=== PATIENT | female | born 1980 | race Two or more races ===

== ENCOUNTER 2018-12-20 13:11 | Emergency (ER) | payer OTHER ==
[~2018-12-20] VITALS: Ht 160 cm; Wt 60.0 kg
[2018-12-20] MEDS ORDERED: ONDANSETRON 4MG ODT PO STA (14:11)
[2018-12-20 14:49] LABS: CHLORIDE 104 mEq/L (98-107)
[2018-12-20 14:53] LABS: BASOPHILS % 0.7 % (0.0-2.0); ETHANOL BLOOD < 10 mg/dL; HEMATOCRIT. 34.6 % (36.0-48.0); LYMPHOCYTES % 13.4 % (20.0-50.0); MEAN CORPUSCULAR HEMOGLOBIN 29.8 pg (28.0-32.0); MEAN PLATELET VOLUME 7.9 fl (7.4-10.4); MONOCYTES % 9.5 % (2.0-8.0); NEUTROPHILS % 75.4 % (40.0-76.0); PLATELET 205 x1000/uL (130-400); RED BLOOD CELL COUNT 4.02 mill/uL (4.2-5.4); RED CELL DISTRIBUTION WIDTH 14.3 % (11.6-14.6)
[2018-12-20] MEDS ORDERED: SODIUM CHLORIDE 0.9% 1,000 ML IV ONE (16:30)
[2018-12-20 16:45] LABS: CLARITY URINE CLOUDY (CLEAR); COLOR URINE YELLOW (YELLOW); KETONES URINE 1+ (NEGATIVE); LEUKOCYTE ESTERASE URINE NEGATIVE (NEGATIVE); NITRITE URINE POSITIVE (NEGATIVE); OCCULT BLOOD URINE NEGATIVE (NEGATIVE); PH URINE 5.5 (4.5-8.0); PROTEIN URINE 1+ (NEGATIVE); SPECIFIC GRAVITY URINE 1.023 (1.005-1.030); UROBILINOGEN URINE 0.2 E.U./dL (0.2-1.0)
[2018-12-20 17:10] LABS: *BARBITURATES SCREEN URINE NEGATIVE (NEGATIVE); *BENZODIAZEPINES SCREEN URINE NEGATIVE (NEGATIVE); *COCAINE SCREEN URINE NEGATIVE (NEGATIVE); METHADONE URINE SCREEN NEGATIVE (NEGATIVE); OPIATES URINE SCREEN NEGATIVE (NEGATIVE); PHENCYCLIDINE URINE SCREEN NEGATIVE (NEGATIVE)
[2018-12-20 17:11] LABS: *AMPHETAMINES SCREEN URINE NEGATIVE (NEGATIVE)
[2018-12-20 17:13] LABS: CANNABINOID URINE SCREEN PRESUMTIVE POSITIVE (NEGATIVE)
[2018-12-20] MEDS ORDERED: NITROFURANTOIN 100MG M/M CAPSULE PO ONE (17:30)
[2018-12-20 20:35] VITALS: BP 123/65
== END 2018-12-20 20:15 | disposition home or self-care (01) ==
LOC: ER 13:11
DX: T40.7X1A Poisoning by cannabis (derivatives), accidental (unintentional), initial encounter (principal); F12.10 Cannabis abuse, uncomplicated; Y92.89 Other specified places as the place of occurrence of the external cause
CPT/HCPCS: 36415; 80053; 80305; 80307; 80320; 80329; 81003; 81025; 85025; 96360; 96361; 99283; J7030; Q0162; G0480

== ENCOUNTER 2018-12-31 11:05 | Emergency (ER) | payer OTHER ==
[~2018-12-31] VITALS: Ht 152.4 cm; Wt 54.4 kg
[2018-12-31 13:22] LABS: CLARITY URINE TURBID (CLEAR); COLOR URINE YELLOW (YELLOW); KETONES URINE NEGATIVE (NEGATIVE); LEUKOCYTE ESTERASE URINE 3+ (NEGATIVE); NITRITE URINE NEGATIVE (NEGATIVE); OCCULT BLOOD URINE 3+ (NEGATIVE); PH URINE 6.5 (4.5-8.0); PROTEIN URINE 1+ (NEGATIVE); SPECIFIC GRAVITY URINE 1.012 (1.005-1.030); UROBILINOGEN URINE 0.2 E.U./dL (0.2-1.0)
[2018-12-31 14:00] VITALS: BP 102/70
== END 2018-12-31 14:04 | disposition home or self-care (01) ==
LOC: ER 11:05
DX: N39.0 Urinary tract infection, site not specified (principal); F12.10 Cannabis abuse, uncomplicated
CPT/HCPCS: 87077; 87186; 99283

== ENCOUNTER 2019-11-19 20:31 | Emergency (ER) | payer SELFPAY ==
[~2019-11-19] VITALS: Ht 127 cm; Wt 56.2 kg
[2019-11-19 23:39] VITALS: BP 130/80
== END 2019-11-19 23:40 | disposition home or self-care (01) ==
LOC: ER 20:31
DX: M54.5 Low back pain (principal)
CPT/HCPCS: 81025; 99282

== ENCOUNTER 2020-01-21 22:28 | Inpatient (IN) | payer SELFPAY ==
[~2020-01-21] VITALS: Ht 152.4 cm; Wt 57.6 kg
[2020-01-21] MEDS ORDERED: SODIUM CHLORIDE 0.9% 1,000 ML IV ONE (23:12)
[2020-01-21] MEDS ORDERED: ONDANSETRON HCL 4MG/2ML INJ IV ONE (23:15)
[2020-01-21] MEDS ORDERED: MORPHINE SULFATE 4 MG/ML CPJ (NOT FOR IM USE) IV ONE (23:15)
[2020-01-21 23:23] LABS: CLARITY URINE TURBID (CLEAR); KETONES URINE 1+ (NEGATIVE); LEUKOCYTE ESTERASE URINE 2+ (NEGATIVE); NITRITE URINE POSITIVE (NEGATIVE); OCCULT BLOOD URINE 3+ (NEGATIVE); PH URINE 5.5 (4.5-8.0); PROTEIN URINE 3+ (NEGATIVE); SPECIFIC GRAVITY URINE 1.013 (1.005-1.030); UROBILINOGEN URINE 0.2 E.U./dL (0.2-1.0)
[2020-01-21] MEDS ORDERED: MORPHINE SULFATE 2 MG/ML CPJ (NOT FOR IM USE) IV ONE (23:30)
[2020-01-21 23:32] LABS: COLOR URINE BLOODY (YELLOW)
[2020-01-21 23:45] LABS: BASOPHILS % 0.9 % (0.0-2.0); EOSINOPHILS % 0.4 % (0.0-5.0); LYMPHOCYTES % 27.5 % (20.0-50.0); MEAN CORPUSCULAR HEMOGLOBIN 19.9 pg (28.0-32.0); MEAN PLATELET VOLUME 8.2 fl (7.4-10.4); MONOCYTES % 13.2 % (2.0-8.0); PLATELET 291 x1000/uL (130-400); RED BLOOD CELL COUNT 2.73 mill/uL (4.2-5.4)
[2020-01-21 23:48] LABS: HEMOGLOBIN. 5.4 g/dL (12.0-16.0)
[2020-01-21 23:49] LABS: HEMATOCRIT. 17.8 % (36.0-48.0)
[2020-01-21 23:51] LABS: CHLORIDE 106 mEq/L (98-107)
[2020-01-22 00:02] LABS: B-HCG QUANTITATIVE < 1 mIU/mL (<3)
[2020-01-22] MEDS ORDERED: CEFTRIAXONE 1 G PREMIX 50 ML IV NR (00:45)
[2020-01-22] MEDS ORDERED: ONDANSETRON HCL 4MG/2ML INJ IV PRN (01:30)
[2020-01-22] MEDS ORDERED: CLONIDINE 0.1MG TABLET PO PRN (01:30)
[2020-01-22] MEDS ORDERED: ACETAMINOPHEN 325MG TABLET PO PRN (01:30)
[2020-01-22] MEDS ORDERED: MAGNESIUM/ALUMINUM HYDROXIDE/SIMETHICONE 30ML UDC PO PRN (01:30)
[2020-01-22] MEDS ORDERED: DIPHENHYDRAMINE 50MG/ML VIAL IV PRN (01:30)
[2020-01-22 02:05] LABS: TOTAL IRON BINDING CAPACITY 439 ug/dL (250-450)
[2020-01-22 02:08] LABS: PLATELET ESTIMATE NORMAL
[2020-01-22] MEDS: SODIUM CHLORIDE 0.9% 1,000 ML IV SCH (07:00)
[2020-01-22 08:00] VITALS: BP 95/51
[2020-01-22 09:02] VITALS: BP 95/51
[2020-01-22] MEDS ORDERED: INFLUENZA VIRUS VACCINE(AFLURIA) 0.5ML SYR IM ONE (09:45)
[2020-01-22 11:06] LABS: HEMATOCRIT 26.2 % (36.0-48.0); HEMOGLOBIN 8.5 g/dL (12.0-16.0); MEAN CORPUSCULAR HEMOGLOBIN 22.8 pg (28.0-32.0); MEAN CORPUSCULAR VOLUME 70.2 fL (81.0-99.0); PLATELET 265 x1000/uL (130-400); RED BLOOD CELL COUNT 3.74 mill/uL (4.2-5.4); RED CELL DISTRIBUTION WIDTH 26.2 % (11.6-14.6)
[2020-01-22 11:38] LABS: PROTHROMBIN TIME 10.6 sec (9.6-11.0)
[2020-01-22 12:00] VITALS: BP 103/41
[2020-01-22] MEDS: ACETAMINOPHEN 325MG TABLET PO PRN ×2 (13:32→20:08)
[2020-01-22] MEDS: IRON SUCROSE COMPLEX 100 MG/5 ML ML IV SCH (14:01)
[2020-01-22 16:00] VITALS: BP 113/70
[2020-01-22] MEDS: ESTROGENS,CONJUGATED 25MG/VIAL IV SCH (17:04)
[2020-01-22 20:00] VITALS: BP 100/60
[2020-01-22] MEDS ORDERED: ZOLPIDEM TARTRATE 5MG TABLET PO PRN (21:00)
[2020-01-23] MEDS: ESTROGENS,CONJUGATED 25MG/VIAL IV SCH ×2 (00:21→04:43)
[2020-01-23] MEDS: ACETAMINOPHEN 325MG TABLET PO PRN (01:02)
[2020-01-23 04:00] VITALS: BP 116/75
[2020-01-23] MEDS: SODIUM CHLORIDE 0.9% 1,000 ML IV SCH (04:42)
[2020-01-23 07:56] VITALS: BP 92/52
[2020-01-23] MEDS: IRON SUCROSE COMPLEX 100 MG/5 ML ML IV SCH (08:15)
[2020-01-23 08:59] LABS: BASOPHILS % 1.1 % (0.0-2.0); EOSINOPHILS % 1.2 % (0.0-5.0); HEMATOCRIT. 23.8 % (36.0-48.0); HEMOGLOBIN. 7.6 g/dL (12.0-16.0); LYMPHOCYTES % 23.4 % (20.0-50.0); MEAN CORPUSCULAR HEMOGLOBIN 22.3 pg (28.0-32.0); MEAN CORPUSCULAR VOLUME 69.6 fL (81.0-99.0); MEAN PLATELET VOLUME 8.3 fl (7.4-10.4); MONOCYTES % 6.1 % (2.0-8.0); NEUTROPHILS % 68.2 % (40.0-76.0); PLATELET 238 x1000/uL (130-400); RED BLOOD CELL COUNT 3.42 mill/uL (4.2-5.4)
[2020-01-23 11:54] VITALS: BP 102/36
[2020-01-23 15:30] VITALS: BP 106/46
== END 2020-01-23 16:40 | disposition home or self-care (01) | DRG 532 ==
LOC: ER 22:28 → 5WST 01-22 00:52 → ENRESERV 01-22 04:08
PROVIDERS: ADMIT Internal Medicine; ATTEND Internal Medicine
PROC: 30233N1 Transfusion of Nonautologous Red Blood Cells into Peripheral Vein, Percutaneous Approach (ICD-10-PCS; principal; 2020-01-22)
DX: N92.0 Excessive and frequent menstruation with regular cycle (principal); D64.9 Anemia, unspecified; E61.1 Iron deficiency; N83.201 Unspecified ovarian cyst, right side; Z79.899 Other long term (current) drug therapy
CPT/HCPCS: 36415; 76830; 76856; 80053; 81003; 83540; 83550; 84702; 85025; 85027; 85384; 86850; 86900; 86920; 90686; 99291; J0696; J1410; J2270; J2405; J7030; P9016